=== PATIENT | female | born 1990 ===

== ENCOUNTER 2017-08-06 19:49 | Inpatient (IN) | payer MEDICAID ==
[2017-08-06 19:50] VITALS: BMI 21.8
[2017-08-06] MEDS ORDERED: Sodium Chloride 0.9% 1,000 ML IV STA (20:19)
[2017-08-06 20:57] LABS: BASO # 0.1 K/uL (0.0-0.2); BASO % 0.8 % (0.0-2.0); EOS % 0.1 % (0.0-4.0); HEMATOCRIT 38.8 % (34.0-47.0); LYMPH % 17.1 % (20.0-40.0); MEAN CELL VOLUME 87.8 fl (81.0-99.0); MEAN PLATELET VOLUME 7.9 fl (7.2-11.7); MONO # 1.3 K/uL (0.0-0.8); MONO % 11.2 % (0.0-10.0); NEUT # 8.2 K/uL (1.8-7.0); NEUT % 70.8 % (50.0-75.0); NRBC % 0.1 % (0.0-0.0); RED CELL DISTRIBUTION WIDTH 14.1 % (11.5-14.5); WHITE BLOOD COUNT 11.6 K/uL (4.8-10.8)
[2017-08-06 21:07] LABS: ALB/GLOB RATIO 1.2 (1.0-2.1); ALKALINE PHOSPHATASE 104 U/L (38-126); ALT/SGPT 28 U/L (9-52); AST/SGOT 24 U/L (14-36); BILIRUBIN,TOTAL 0.6 mg/dl (0.2-1.3); BLOOD UREA NITROGEN 6 mg/dl (7-17); CARBON DIOXIDE 26 mmol/L (22-30); CHLORIDE 101 mmol/L (98-107); GFR AFRICAN-AMERICAN > 60; GLUCOSE,RANDOM 100 mg/dL (65-105); POTASSIUM 3.3 MMOL/L (3.6-5.0); SODIUM 139 mmol/l (132-148); TOTAL PROTEIN 8.5 G/DL (6.3-8.2)
[2017-08-06 21:40] LABS: VENOUS BLOOD GAS BASE EXCESS 1.9 mmol/L (0.0-2.0); VENOUS BLOOD GAS PCO2 41 mmHg (40-60); VENOUS BLOOD PH 7.42 (7.32-7.43)
--- NOTE | 2017-08-06 21:49 | ED PDOC ---
HPI: General Adult Time Seen by Provider: 08/06/17 20:08 Chief Complaint (Nursing): Abdominal Pain History Per: Patient Additional Complaint(s): Pt. states for the past week she's had L flank pain associated with frequency and mild dysuria. Reports no fever at home. She has been taking Motrin at home without any relief. Denies N/V/D, abdominal pain, hematuria, incontinence, hx of kidney stones, trauma. Past Medical History Reviewed: Historical Data, Nursing Documentation, Vital Signs Vital Signs: Last Vital Signs Temp 101.5 F H 08/06/17 20:08 Pulse 104 H 08/06/17 20:08 Resp 20 08/06/17 20:08 BP 144/79 08/06/17 20:08 Pulse Ox 98 08/06/17 23:17 - Medical History PMH: Denies: Depression - Family History Family History: States: No Known Family Hx - Allergies Allergies/Adverse Reactions: Allergies Allergy/AdvReac Type Severity Reaction Status Date / Time No Known Allergies Allergy Verified 06/21/15 07:30 Review of Systems ROS Statement: Except As Marked, All Systems Reviewed And Found Negative Genitourinary Female: Positive for: Dysuria, Frequency Physical Exam - Physical Exam Appears: Positive for: Well, Non-toxic, No Acute Distress Skin: Positive for: Normal Color, Warm. Negative for: Rash Eye Exam: Positive for: Normal appearance ENT: Positive for: Normal ENT Inspection. Negative for: Pharyngeal Erythema, Tonsillar Exudate, Tonsillar Swelling Neck: Positive for: Normal, Painless ROM Cardiovascular/Chest: Positive for: Regular Rate, Rhythm Respiratory: Positive for: CNT, Normal Breath Sounds Gastrointestinal/Abdominal: Positive for: Normal Exam, Bowel Sounds, Soft. Negative for: Tenderness Back: Positive for: Normal Inspection. Negative for: L CVA Tenderness, R CVA Tenderness Extremity: Positive for: Normal ROM Neurologic/Psych: Positive for: Alert, Oriented - Laboratory Results Result Diagrams: 08/06/17 20:54 08/06/17 20:54 Urine POC: Negative Urine dip results: Positive for: Leukocyte Esterase (moderate), Nitrate ( positive) - ECG O2 Sat by Pulse Oximetry: 98 - Progress ED Course And Treament: Labs ordered. Toradol 30mg IV, IV NS bolus ordered. 2127 Udip: +leuks and nitrates CT abd/pelvis w/o contrast, rocephin 1gm IV ordered. On re-evaluation, pt. reports moderate pain relief. Informed of plan. 2316 CT abd/pelvis w/o contrast: LEFT perinephric stranding, nonspecific. Correlate with urinalysis to exclude pyelonephritis. 2329 Case d/w Dr. 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 Disposition - Clinical Impression Clinical Impression: Pyelonephritis, Sepsis - Patient ED Disposition Is Patient to be Admitted: Yes - Disposition Disposition Time: 23:29 Condition: STABLE Forms: [employer] (Macedonian)
--- NOTE | 2017-08-06 23:03 | CT ---
EXAM: CT Abdomen and Pelvis Without Intravenous Contrast CLINICAL HISTORY: 27 years old, female; Pain; Abdominal pain; Flank; Left; Prior surgery; Surgery date: 6+ months; Surgery type: 1 ; Additional info: L flank pain; Uti TECHNIQUE: Axial computed tomography images of the abdomen and pelvis without intravenous contrast. All CT scans at this facility use one or more dose reduction techniques, viz.: automated exposure control; ma/kV adjustment per patient size (including targeted exams where dose is matched to indication; i.e. head); or iterative reconstruction technique. Coronal and sagittal reformatted images were created and reviewed. COMPARISON: No relevant prior studies available. FINDINGS: Limitations: Motion artifact - mild. Lower thorax: Minimal atelectasis/scarring. ABDOMEN: Liver: Fatty infiltration. Gallbladder and bile ducts: No calcified stones. No ductal dilation. Pancreas: Unremarkable. No ductal dilation. Spleen: No splenomegaly. Adrenals: No mass. Kidneys and ureters: Mild stranding about LEFT kidney. No renal calculi. No hydronephrosis. Stomach and bowel: No definite mural thickening. No obstruction. Appendix: Normal caliber. No inflammation. PELVIS: Bladder: Unremarkable. No stones. Reproductive: Tampon within vaginal vault. ABDOMEN and PELVIS: Intraperitoneal space: No significant fluid collection. No free air. Bones/joints: No acute fracture. Soft tissues: Unremarkable. Vasculature: Retroaortic LEFT renal vein. No aneurysm. Lymph nodes: No pathologically enlarged lymph nodes. IMPRESSION: 1. LEFT perinephric stranding, nonspecific. Correlate with urinalysis to exclude pyelonephritis. 2. Incidental/non-acute findings are described above.
[2017-08-07] MEDS ORDERED: Potassium Chloride 20 mEq ER Tab PO ONE (06:37)
[2017-08-07] MEDS: Sodium Chloride 0.9% 1,000 ML IV SCH ×3 (06:59→20:43)
[2017-08-07] MEDS ORDERED: Pneumococcal 23-Valent Vaccine IM ONE (09:00)
[2017-08-07] MEDS ORDERED: Influenza Vaccine 18yr & older 0.5 ML/45 MCG SYR IM ONE (14:40)
[2017-08-07] MEDS: cefTRIAXone 2 GM in Sodium Chloride 0.9% 100 ML IVPB SCH (15:34)
--- NOTE | 2017-08-07 15:47 | HP ---
CHIEF COMPLAINT: Flank pain and urinary frequency. HISTORY OF PRESENT ILLNESS: This is a 27-year-old female without significant past medical history who was having dysuria, frequency of urination and then started having left flank pain for a few days, which did not get better. So, the patient was brought to emergency room and was admitted for further management. REVIEW OF SYSTEMS: Positive for dysuria, frequency and flank pain. Review of systems otherwise is negative for headache, dizziness, syncope, loss of consciousness, chest pain, shortness of breath, nausea, vomiting, diarrhea, constipation, any new joint or extremity pain. Review of systems is also positive for fever, malaise and weakness. PAST MEDICAL HISTORY: Unremarkable. PERSONAL HISTORY: The patient is currently nonsmoker and nondrinker. No substance abuse. MEDICATIONS: The patient is not on any medication. ALLERGIES: THE PATIENT IS NOT ALLERGIC TO ANY MEDICATION. FAMILY HISTORY: Noncontributory. PHYSICAL EXAMINATION GENERAL: A well-built, well-nourished, slightly overweight 27-year-old female, sick-looking, but in no acute distress. VITAL SIGNS: Temperature 101.3, pulse 94, respirations 20, blood pressure 114/71. HEENT: Pupils reacting to light. NECK: No JVD. No thyromegaly. No lymphadenopathy. No nystagmus. Normocephalic and atraumatic skull. HEART: S1 and S2 normal and regular. No significant murmur, gallop, or rub is heard. LUNGS: Shows good bilateral air entry. No rales or rhonchi. ABDOMEN: The patient has marked left CVA and flank tenderness. No sign of acute abdomen. No guarding. No rigidity. No rebound. Bowel sounds are plus and normal. EXTREMITIES: No edema. No calf swelling. No tenderness. No acute ischemia. CENTRAL NERVOUS SYSTEM: Essentially unchanged. DIAGNOSTIC DATA: Available diagnostic data reviewed. WBC 11.6, hemoglobin 12.8, hematocrit 38.8, platelet 281. The pH 7.42. Lactic acid is 1.7. Sodium 139, potassium 3.3, chloride 101, bicarb 26, BUN 6, creatinine 0.7. SMA-12 is unremarkable. CAT scan of abdomen is consistent with pyelonephritis. ADMITTING IMPRESSION: Acute pyelonephritis, urinary tract infection. PLAN: Plan as ordered. Case and plan discussed with the patient. Robert Suarez MD
[2017-08-08] MEDS: Sodium Chloride 0.9% 1,000 ML IV SCH (05:33)
[2017-08-08 07:22] LABS: ALB/GLOB RATIO 1.1 (1.0-2.1); ALKALINE PHOSPHATASE 94 U/L (38-126); ALT/SGPT 37 U/L (9-52); AST/SGOT 27 U/L (14-36); BILIRUBIN,TOTAL 0.3 mg/dl (0.2-1.3); BLOOD UREA NITROGEN 5 mg/dl (7-17); CALCIUM 9.1 mg/dL (8.4-10.2); CARBON DIOXIDE 28 mmol/L (22-30); CHLORIDE 106 mmol/L (98-107); CHOLESTEROL 132 mg/dL (0-199); GFR AFRICAN-AMERICAN > 60; GLUCOSE,RANDOM 97 mg/dL (65-105); POTASSIUM 3.8 MMOL/L (3.6-5.0); SODIUM 146 mmol/l (132-148)
[2017-08-08 07:24] LABS: T4 9.66 ug/dl (5.5-11.0)
[2017-08-08 07:37] LABS: THYROID STIMULATING HORMONE 1.56 mIU/ML (0.46-4.68)
[2017-08-08] MEDS: cefTRIAXone 2 GM in Sodium Chloride 0.9% 100 ML IVPB SCH (09:10)
--- NOTE | 2017-08-08 10:52 | PN ---
DATE: 08/08/2017 SUBJECTIVE: The patient is seen and examined. Interim events noted. The patient still has 101 fever, but the patient feels better today. Pain is present, but much improving. No chest pain. No shortness of breath. PHYSICAL EXAMINATION: GENERAL: The patient is in no acute distress. VITAL SIGNS: Stable. HEART: S1 and S2, normal and regular. LUNGS: Good bilateral air exchange. ABDOMEN: Soft, nontender, minimal flank tenderness, remarkably improved from yesterday. No sign of acute abdomen. No guarding. No rigidity. No rebound. Bowel sounds are plus and normal. EXTREMITIES: No edema. No calf swelling. No tenderness. No acute ischemia. CENTRAL NERVOUS SYSTEM: Essentially unchanged. DIAGNOSTIC DATA: Available diagnostic data reviewed. ASSESSMENT AND PLAN: Overall, the patient is slowly improving, responding very well to antibiotic. Plan as ordered. Case and plan discussed with the patient. Robert Suarez MD
[2017-08-09 06:36] LABS: HEMATOCRIT 37.4 % (34.0-47.0); MEAN CORPUSCULAR HEMOGLOBIN 29.7 pg (27.0-31.0); MEAN CORPUSCULAR HGB CONC 33.8 g/dL (33.0-37.0); RED CELL DISTRIBUTION WIDTH 14.2 % (11.5-14.5); WHITE BLOOD COUNT 7.3 K/uL (4.8-10.8)
[2017-08-09 08:47] VITALS: BP 111/71; PULSE 52; RESP 20; TEMP 98.2; O2SAT 97
[2017-08-09] MEDS: cefTRIAXone 2 GM in Sodium Chloride 0.9% 100 ML IVPB SCH (09:43)
--- NOTE | 2017-08-09 11:10 | PN ---
DATE: 08/09/2017 SUBJECTIVE: The patient is seen and examined. Interim events noted. Patient feels much better, has no fever, was able to tolerate food. No nausea, no vomiting, no flank pain. PHYSICAL EXAMINATION GENERAL: The patient is in no acute distress. VITAL SIGNS: Stable. HEART: S1 and S2, normal and regular. LUNGS: Good bilateral air exchange. ABDOMEN: Soft, nontender. EXTREMITIES: No edema. No calf swelling. No tenderness. No acute ischemia. CENTRAL NERVOUS SYSTEM: Essentially unchanged. Flank tenderness is resolved. LABORATORY DATA: Available diagnostic data reviewed. Urine culture shows gram-negative rods and gram-positive cocci. Identification and sensitivity is still pending. ASSESSMENT AND PLAN: Overall, the patient is clinically improving. Plan as ordered. Robert Suarez MD
--- NOTE | 2017-08-10 06:35 | PQF GENQUE ---
This form is a permanent part of the medical record 08/10/17 Dr. Suarez, ER has documented the following information ( SEPSIS) with no mention of this diagnosis in your documentation. Please indicate in your next progress note and /or discharge summary your agreement with information consultant or provide clarification that this diagnosis is not a current condition. Diagnosis: SEPSIS Documented by: ER MD Admitted with L flank pain associated with frequency and mild dysuria. No fever at home and taking Motrin. WBC 11.6, lactate 1.7, CT : LEFT perinephric stranding, nonspecific. Correlate with urinalysis to exclude pyelonephritis. URINE CS: E Coli and Staph Aureus. Treated with Rocephin. Temp: 101.5, 97.8, 97.8, 98.5, 101.3, 99.7. 101. 98.2 HR: 104, 71, 71, 80, 94, 88, 86, 76, 71 BP: 144/79, 124/64, 104/68, 114/71, 121/79, 96/51, 112/74 Clarification of your documentation is requested to better reflect the severity of illness and intensity of treatment of your patient. Indicators present [] Specify: [] [] Specify: [] [] Specify: [] [] Specify: [] Location in the medical record that reflects the above clinical findings: [] Treatment Provided: [] PHYSICIAN'S RESPONSE Based on your medical judgment of the clinical indicators outlined above please clarify the following: [] Practitioner response [] If unable to determine, please check the box, sign and date. Present On Admission (POA) Indicator: [] Present at the time of admission [] Not present at the time of admission [] Clinically Undetermined In responding to this query, please exercise your independent professional judgment. The fact that a question is asked does not imply that any particular answer is desired or expected. Thank you for your clarification on this documentation. If you have any questions please call:[phone] * Thank you, Miryam Rodriguez RN, [facility]
== END 2017-08-09 14:00 | disposition home or self-care (01) | DRG 901 ==
LOC: H.ER 19:49 → H.ERHOLD 23:28 → H.MEDSURG1 08-07 04:44 → OBSVTOIN 08-07 20:27
PROVIDERS: ADMIT Internal Medicine; ATTEND Internal Medicine
PROC: 3E0234Z Introduction of Serum, Toxoid and Vaccine into Muscle, Percutaneous Approach (ICD-10-PCS; principal; 2017-08-07)
DX: A41.9 Sepsis, unspecified organism (principal); N10 Acute pyelonephritis; E66.3 Overweight; Z68.27 Body mass index [BMI] 27.0-27.9, adult; Z23 Encounter for immunization